=== PATIENT | male | born 1990 | race Caucasian/White ===

== ENCOUNTER 2018-08-12 18:26 | Emergency (ER) | payer OTHER ==
[~2018-08-12] VITALS: Ht 182.9 cm; Wt 79.0 kg
[2018-08-12] MEDS ORDERED: SODIUM CHLORIDE 0.9% 1,000 ML IV ONE (19:06)
[2018-08-12] MEDS ORDERED: LORAZEPAM 2MG/ML CPJ IV ONE ×2 (19:15→20:15)
[2018-08-12] MEDS ORDERED: OLANZAPINE 10 MG/VIAL IM ONE (19:15)
[2018-08-12 20:18] LABS: HEMATOCRIT. 42.6 % (42.0-52.0); HEMOGLOBIN. 14.5 g/dL (14.0-18.0); MEAN CORPUSCULAR HEMOGLOBIN 31.3 pg (28.0-32.0); MEAN CORPUSCULAR VOLUME 91.8 fL (80.0-94.0); MEAN PLATELET VOLUME 8.4 fl (7.4-10.4); PLATELET 165 x1000/uL (130-400); RED BLOOD CELL COUNT 4.64 mill/uL (4.7-6.1); RED CELL DISTRIBUTION WIDTH 12.6 % (11.6-14.6)
[2018-08-12 20:22] LABS: CHLORIDE 111 mEq/L (98-107)
[2018-08-12 20:25] LABS: ETHANOL BLOOD < 10 mg/dL
[2018-08-12 20:28] LABS: PLATELET ESTIMATE NORMAL
[2018-08-12 20:31] LABS: CREATINE KINASE 149 IU/L (39-308)
[2018-08-12 20:33] LABS: CREATINE KINASE MB FRACTION 1.7 ng/mL (0.5-3.6)
[2018-08-13 07:44] VITALS: BP 124/78
[2018-08-13 10:37] LABS: *AMPHETAMINES SCREEN URINE PRESUMTIVE POSITIVE (NEGATIVE); *BARBITURATES SCREEN URINE NEGATIVE (NEGATIVE); *BENZODIAZEPINES SCREEN URINE NEGATIVE (NEGATIVE)
[2018-08-13 10:38] LABS: *COCAINE SCREEN URINE NEGATIVE (NEGATIVE); CANNABINOID URINE SCREEN PRESUMTIVE POSITIVE (NEGATIVE); METHADONE URINE SCREEN NEGATIVE (NEGATIVE); OPIATES URINE SCREEN NEGATIVE (NEGATIVE); PHENCYCLIDINE URINE SCREEN NEGATIVE (NEGATIVE)
== END 2018-08-13 08:01 | disposition home or self-care (01) ==
LOC: ER 18:32 → EDBD 18:32 → ER 08-13 08:01
DX: G92 Toxic encephalopathy (principal); G93.41 Metabolic encephalopathy; R46.1 Bizarre personal appearance; R00.0 Tachycardia, unspecified
CPT/HCPCS: 36415; 70450; 80048; 80305; 80307; 80329; 82550; 82553; 83735; 83880; 84484; 85025; 93005; 96361; 96372; 96374; 96376; 99284; G0482; J2060; J3490; J7030